=== PATIENT | female | born 1970 | race Caucasian/White ===

== ENCOUNTER 2018-06-01 11:30 | Emergency (ER) | payer BC, MEDICAID ==
[2018-06-01] MEDS ORDERED: fentaNYL 100 MCG/2 ML SDV IVPUSH ONE (12:27)
[2018-06-01] MEDS: Sodium Chloride 0.9% 10 ML Syringe FLUSH PRN ×3 (12:41→13:25)
[2018-06-01] MEDS ORDERED: HYDROmorphone 2 MG/ML SDV IVPUSH ONE (13:07)
[2018-06-01] MEDS ORDERED: Ondansetron 4 MG/2 ML SDV IVPUSH ONE (13:07)
[2018-06-01] MEDS ORDERED: Sodium Chloride 0.9% 1,000 ML IV ONE (13:26)
--- NOTE | 2018-06-01 15:24 | CT ---
INDICATION: Has bladder spasm with PCM/stimulator implant, severe back pain lumbar region today, after lifting excess this week. CT LUMBOSACRAL SPINE: Spiral 2.5 mm axial sections were obtained through the lumbosacral spine with sagittal and coronal reconstructions, 06/01/2018. No comparisons. Total exam DLP = 1,257.69 mGy-cm. Bulging disk is noted to a mild degree generally at the L3-4 level. There is a focal herniated nucleus pulposus, which extends slightly cranially at the L4-5 level and anteriorly, as well as to the left, likely impinging on nerve root in that area. MRI is recommended for further evaluation of this finding. Degenerative changes are relatively mild at the L4-5 and to a greater extent L5- S1 apophyseal joints. They are also noted at the L2-3 apophyseal joints to a mild degree. Overall, bone density appeared to be normal. No generalized spinal stenosis was seen of significance. IMPRESSION: Most notable finding is what appears to be a herniated nucleus pulposus at L4-5, extending mostly to the left and possibly impinging upon the exiting nerve root. This should be correlated clinically. MRI may be helpful for further evaluation. Report was called to Dr. Cameron at approximately 1420 hours on 06/01/2018. [place]
--- NOTE | 2018-06-02 11:03 | ER ---
DATE SEEN: 06/01/2018 CHIEF COMPLAINT: 1. Implant stimulator with urine incontinence and she is concerned if she leaves the switch it on it will "fire" more. She is not sure what is best for her, so she turned off her bladder implant stimulator. 2. Severe back pain. HISTORY OF PRESENT ILLNESS: 1. This 47-year-old woman with a bladder implant pacemaker placed in 10/2017 has been followed by Dr. Kramer, [facility]. She thought when she turned off her bladder pacemaker, she would have less incontinence. It turns out now she passes urine every 5 to 10 minutes with the bladder stimulator turned off", and while trying to go with the bladder stimulator turned on, she can go only 5 to 10 minutes, so she is not sure what she should do. 2. She had onset of diarrhea 1 hour postprandial a week ago. She has had anorexia. She has felt hot on and off. She had diaphoresis last night. 3. She has noted increased edema in her lower extremities. 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 Now, she has "terrible back pain." Her chief complaint is her back pain and "numbness." She notes she has been hyperventilating, so this can account for some of her numbness; however, she notes there is more numbness in her left leg than her right leg. Now that she is not hyperventilating, she still has numbness in her left leg that is greater than the right leg. She had previous documentation of cholelithiasis but never had surgery. She has also a documentation of a kidney "polyp" but no renal stones in 2017. This has not been monitored. She also notes that her right face, right shoulder, and right leg are numb. Her left leg has tingling. She has mild shortness of breath. She has not slept because of back pain. She has had burning in her lower back for the last 4 days and has used Biofreeze (Icy Hot) to take care of the pain. Neither the Icy hot nor the heating pad work to decrease the pain. She works at [employer] and traveled 45 to 50 minutes to get here. CURRENT MEDICATIONS: 1. Naproxen 440 mg as needed. 2. Ibuprofen 400 mg as needed. ALLERGIES: None. REVIEW OF SYSTEMS: HEENT: She denies headache or compromised vision. CARDIORESPIRATORY: She denies chest pain, shortness of breath, myocardial infarction, arrhythmias, rhythm disturbances, or hypertension. GASTROINTESTINAL: She denies nausea, vomiting, diarrhea, or reflux. She is obese, weighs 240 pounds, that is 108.8 kg. She has had documented cholelithiasis. No surgery was performed. She denies GERD. GENITOURINARY: History of kidney polyps but no renal stones. She denies frequency, urgency, or dysuria. MUSCULOSKELETAL: She denies weakness in her lower extremities but has extreme pain in her lower back. PSYCHIATRIC: Negative. PHYSICAL EXAMINATION: CONSTITUTIONAL: The patient is groaning loudly intermittently. When she moves, she has a loud groan. She is overweight. She is appropriate but grunts and groans frequently with any movement. EYES: PERRLA intact. THROAT: Pharynx is without abnormality. NECK: No thyromegaly or masses in the neck. No bruits. LUNGS: Clear, without rales, rhonchi, or wheezes. HEART: S1 and S2. No murmur. No irregular rate and rhythm. ABDOMEN: Soft. No guarding. No rebound or discomfort. Marked pain and she exhibits allodynia; just touching the soft tissue of her back, she screams and shouts, and that is just gentle touch at the site of her subcutaneous tissue. When she was advised that I was having difficulty differentiating between allodynia and actual pain. When I explained the concept of allodynia, she exhibited more self control and was then a little more reserved and guarded in her exclamation of pain. Palpation of the spinous process exhibited marked pain, L3, 4, and 5. Straight leg raise is positive. Any movement of the leg causes pain. Any movement of the thorax causes pain. She has pain that radiates down the left leg. It is more than the right leg. She has mild dysesthesia of the left and right lower extremities, but she can feel my touch. Mild hypoesthesia but not total anesthesia. Deep tendon reflexes are present: ankle jerks and knee jerks. She has difficulty walking and standing. It takes a long time to walk a distance. RADIOGRAPHIC STUDIES: I took her over to look at the x-rays, I showed to her and explained to her there did not appear to be any abnormality in the vertebral structures. However, a CAT scan was performed because of her dysesthesia, and the radiologist, Dr. Velez, noted bulging disks, mild degree, L3-4, and had a focal herniated nucleus polyposis, which extends cranially at the L4-5 level and anteriorly to the left, impinging on the left nerve root in that area. An MRI is recommended. 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 She has mild L4- 5 and to a greater extent L5-S1 apophyseal degenerative arthritis changes. Bone density seems appropriate. The patient has had marked difficulty, it took her 10 minutes, to walk 10 feet because of her pain. She uses a walker. ASSESSMENT: 1. Herniated left L4-5 disks with impingement of the neural foraminal root. 2. Obesity. 3. Dysesthesia, lower extremities. 4. Dysesthesia secondary to hyperventilation, resolved, part of the upper extremities. 5. Documented kidney "polyps" and also cholelithiasis. 6. Bladder pacemaker because of a problem with overactive spasms in the bladder. This diminished her spasms and allowed her to pass urine. PLAN: 1. The patient is to follow up with doctor tomorrow and have her doctor make arrangements for either MRI or discuss with Dr. Kramer if she can have an MRI. 2. Treat for pain. 3. A trial of Ibrahim catheter to see if it makes a difference. Presently, she can go no more than 10 to 20 minutes, before she has to either void or she loses urine. She loses urine simply because she has such an urgency. She cannot get to the bathroom in time before she loses urine. She walks so slow she cannot get to the bathroom in time. Plan: a. Walker. b. Follow up with doctor tomorrow. c. Her doctor will need to discuss with Dr. Kramer if she can get an MRI and still not ruin the bladder stimulator If the MRI is feasible after that discussion, then schedule an MRI. If she cannot get an MRI, she needs to schedule an appointment with a neurosurgeon regarding her back, and her local doctor can make this arrangement. The patient is given a prescription for Vicodin 20 tablets 1 q.4-6 h. p.r.n. pain and Robaxin 750 mg q.i.d. 60 tablets. TIME SEEN: The patient was seen at 11:35. /[id number] NATHALIE/STONEY AYERS
== END 2018-06-01 15:24 | disposition home or self-care (01) ==
LOC: FB.ED 11:30
DX: M51.26 Other intervertebral disc displacement, lumbar region (principal); E66.9 Obesity, unspecified; R20.8 Other disturbances of skin sensation; R06.4 Hyperventilation
CPT/HCPCS: 36415; 51702; 72131; 80053; 81001; 84443; 85025; 87086; 96361; 96374; 96375; 99283; J1170; J2405; J3010; J7030; J7050